=== PATIENT | female | born 1935 | race Caucasian/White ===

== ENCOUNTER → 2020-10-21 | Outpatient (CLI) | payer MEDICARE, BC | LOC: KOH-I 08:48 | DX: M25.50 Pain in unspecified joint (principal); M47.816 Spondylosis without myelopathy or radiculopathy, lumbar region | CPT/HCPCS: 72110; 73030; 73070 ==

== ENCOUNTER → 2021-01-19 | Outpatient (CLI) | payer MEDICARE, BC | LOC: HEART 5 01-04 09:30 | DX: I25.10 Atherosclerotic heart disease of native coronary artery without angina pectoris (principal); R07.9 Chest pain, unspecified; I50.9 Heart failure, unspecified; I08.3 Combined rheumatic disorders of mitral, aortic and tricuspid valves; I27.20 Pulmonary hypertension, unspecified | CPT/HCPCS: 93306 ==

== ENCOUNTER → 2021-10-24 | Outpatient (CLI) | payer MEDICARE, BC | LOC: RAD 14:34 | DX: R10.9 Unspecified abdominal pain (principal); R05.9 Cough, unspecified; M54.50 Low back pain, unspecified; M51.36 Other intervertebral disc degeneration, lumbar region; R14.3 Flatulence; R91.8 Other nonspecific abnormal finding of lung field | CPT/HCPCS: 71046; 72110; 74018 ==